=== PATIENT | female | born 1975 | race Caucasian/White ===

== ENCOUNTER 2016-10-30 22:37 | Emergency (ER) | payer OTHER ==
[~2016-10-30 22:37] MED LIST: AMOXICILLIN500 M1 PO; AUGMENTIN PO; BACTRIM DS TABL1 TAB PO; BIRTH CONTROL MED; BIRTH CONTROL MED PO; CELEXA PO; ENTEX PSE1 CAP.SR . PO; FLUTICASONE FUROATE; HYDROCODON-ACE1 EAC9 PO; IBUPROFEN PO; LOC PO; PAXIL30 MG PO; PRILOSEC20 MG PO; SUDAFED60 MG PO; ULTRAM PO; VICODIN PO; ZYRTEC PO
[2017-02-10] MEDS ORDERED: FLAGYL (21:59)
[2017-02-10] MEDS ORDERED: CIPRO (21:59)
== END 2016-10-30 23:28 | disposition home or self-care (01) ==
LOC: SED 22:37
DX: L50.1 Idiopathic urticaria (principal); F32.9 Major depressive disorder, single episode, unspecified; F17.200 Nicotine dependence, unspecified, uncomplicated; Z79.899 Other long term (current) drug therapy
CPT/HCPCS: 99283

== ENCOUNTER 2017-02-07 09:19 | Emergency (ER) | payer OTHER ==
--- NOTE | ~2017-02-07 | CT4 ---
[facility] A Service of [facility] RADIOLOGY TEXT RESULTS PATIENT: EBONI GALINDO LOCATION: SED : 77 UNIT #: [id number] AGE: [address]: Sumeet Jackson MD SEX: F ORDER DR: [id number] [place] [id number] E MR#: [id number] Acc #: [id number] NAME: EBONI GALINDO : 1975 SEX: F STUDY DATE/TIME: 02/07/2017 11:11 UNIT: SED ROOM: STUDY DESCRIPTION: CT Abd and Pelv Wo Cont Attending Physician: Sumeet Jackson M.D. Ordering Physician: Sumeet Jackson M.D. Primary Care Physician: Devora Mayfield A.P.R.N. MEDICAL IMAGING REPORT This report is preliminary unless electronic signature is present. EXAM CT abdomen and pelvis 02/07 INDICATIONS Left side abdominal pain since 06:00 a.m. today. Hematuria today. TECHNIQUE Axial noncontrast images were obtained through the abdomen and pelvis. Multiplanar reformats were obtained. This CT exam was performed with one or more of the following radiation dose reduction techniques: automatic exposure control, adjustment of mA and/or kV according to patient size, and iterative reconstruction. COMPARISON STUDIES Comparison made with 12/30/2007. FINDINGS ABDOMEN: There is atelectasis in both lower lobes. Gallbladder unremarkable. 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 No renal or ureteral stones are seen on either side, and there are no comparisons. Unenhanced solid organs are normal. The unopacified GI tract is normal. PELVIS: There are no lower ureteral stones. The bladder is normal. The appendix is surgically absent. There is acute diverticulitis involving the distal descending colon in the left lower quadrant. No abscess is identified. The remainder of the pacified GI tract is within normal limits. IUD present within the uterus. IMPRESSION 1. Acute diverticulitis involving the distal descending colon. There is [facility] A Service of [facility] RADIOLOGY TEXT RESULTS PATIENT: EBONI GALINDO [place] [facility] [place] [birth year] [place]IT #: [id number] AGE: [address]: Sumeet Jackson MD SEX: F ORDER DR: adjacent inflammation but no abscess is seen. 2. No renal or ureteral stones. No hydronephrosis. 3. Appendectomy. 4. IUD within the uterus. Dictated by... Montez Bennett Jr., M.D. THIS IS AN ELECTRONICALLY VERIFIED REPORT Montez Bennett Jr., M.D. at 02/08/2017 6:37 AM ONEIDA/warren TD: 02/07/2017 22:33 JOB #: [id number] MEDICAL IMAGING REPORT Page 1 of 1
[2017-02-07] MEDS ORDERED: MOTRIN600 MG (09:23)
[2017-02-07 10:27] LABS: URINE SOURCE CLEAN CATCH
[2017-02-07 10:27] LABS: BASOPHIL# 0.1 X10e3 (0-0.3); BASOPHIL% 0.9 % (0-2.5); EOSINOPHIL# 0.3 X10e3 (0-0.7); EOSINOPHIL% 1.7 % (0.0-7.0); HEMATOCRIT 40.1 % (35.0-45.0); HEMOGLOBIN 13.2 gm/dL (12.0-16.0); LYMPHOCYTE# 2.9 X10e3 (1.0-3.5); LYMPHOCYTE% 18.7 % (17.0-45.0); MEAN CELL VOLUME 90.7 FL (83-96); MEAN CORPUSCULAR HEMOGLOBIN 29.9 PG (28-34); MONOCYTE# 0.9 X10e3 (0-1.0); MONOCYTE% 5.7 % (3.0-12.0); NEUTROPHIL# 11.5 X10e3 (1.5-7.1); PLATELET COUNT 195 X10e3 (140-420); RED BLOOD COUNT 4.43 X10e (3.90-5.30); RED CELL DISTRIBUTION WIDTH 13.7 % (11.0-15.5); WHITE BLOOD COUNT 15.7 X10e3 (4.0-10.5)
[2017-02-07 10:30] LABS: URINE APPEARANCE CLEAR; URINE BILIRUBIN NEG (NEG); URINE BLOOD 2+ (NEG); URINE COLOR YELLOW; URINE GLUCOSE NEG (NORM); URINE KETONE NEG (NEG); URINE LEUKOCYTE ESTERASE TRACE (NEG); URINE NITRATE NEG (NEG); URINE PH 5.5 (5-8); URINE PROTEIN NEG (NEG); URINE SPECIFIC GRAVITY 1.025 (1.003-1.035); URINE UROBILINOGEN 0.2 MG/DL (NORM)
[2017-02-07 10:38] LABS: ALBUMIN SERUM 3.8 g/dL (3.5-5.0); BILIRUBIN, DIRECT 0.1 mg/dL (0.0-0.2); BILIRUBIN,INDIRECT 0.7 mg/dL (0.0-0.9); BILIRUBIN,TOTAL 0.8 mg/dL (0.2-2.0); BUN/CREATININE RATIO 16.66; CALCIUM SERUM 8.3 mg/dL (8.4-10.2); CREATININE SERUM 0.6 mg/dL (0.6-1.4); POTASSIUM 3.9 mmol/L (3.5-5.1); PROTEIN TOTAL SERUM 6.4 g/dL (6.0-8.3)
[2017-02-07 10:40] LABS: DIFF IND NO
[2017-02-07 10:52] LABS: MICRO INDICATED? YES
[2017-02-07 10:56] LABS: CULTURE INDICATED? YES; URINE BACTERIA 1+ (NEG); URINE RBC 0-2 /[HPF] (0-2); URINE SQUAMOUS EPITHELIAL CELL MODERATE /[HPF]
[2017-02-10] MEDS ORDERED: FLAGYL (21:59)
[2017-02-10] MEDS ORDERED: CIPRO (21:59)
== END 2017-02-07 12:35 | disposition home or self-care (01) ==
LOC: SED 09:19
PROVIDERS: Emergency Medicine
DX: K57.32 Diverticulitis of large intestine without perforation or abscess without bleeding (principal); N39.0 Urinary tract infection, site not specified; F32.9 Major depressive disorder, single episode, unspecified; F17.200 Nicotine dependence, unspecified, uncomplicated
CPT/HCPCS: 36415; 74176; 80048; 80076; 81003; 84703; 85025; 87086; 96374; 96375; 99284; J1170; J1200; J1885; J2405